=== PATIENT | female | born 1960 | race Caucasian/White ===

== ENCOUNTER 2019-12-30 08:08 | Inpatient (IN) | payer OTHER ==
--- NOTE | 2019-12-30 09:17 | BHS.RME ---
Substance Use & Tx History - Substance Use History Alcohol Substance amount: 1 kana oneil Frequency of use: Daily Substance route: Oral Date of Last Use: 12/30/19 Physical/Psych/Mental Status - Behavior Eye Contact: Normal - Cooperativeness Cooperativeness: Cooperative - Thinking Thought Processes: Tight, Logical, Goal Directed Thought content: Future oriented - Physical Health Problems Is patient presently having any pain?: No Does patient presently have any injuries (include location): No Does patient currently have a fever: No Is patient : No CIWA Nausea/Vomitin-Mild Nausea/No Vomiting Muscle Tremors: 4-Moderate,w/Arms Extend Anxiety: 3 Agitation: 3 Paroxysmal Sweats: 1-Minimal Palms Moist Orientation: 0-Oriented Tacttile Disturbances: 1-Very Mild Itch/Numbness Auditory Disturbances: 0-None Visual Disturbances: 0-None Headache: 1-Very Mild CIWA-Ar Total Score: 14
--- NOTE | 2019-12-30 09:23 | HP ---
CIWA Score Nausea/Vomitin-Mild Nausea/No Vomiting Muscle Tremors: 4-Moderate,w/Arms Extend Anxiety: 3 Agitation: 3 Paroxysmal Sweats: 1-Minimal Palms Moist Orientation: 0-Oriented Tacttile Disturbances: 1-Very Mild Itch/Numbness Auditory Disturbances: 0-None Visual Disturbances: 0-None Headache: 1-Very Mild CIWA-Ar Total Score: 14 - Admission Criteria OASAS Guidelines: Admission for Medically Managed Detox: Requires at least one of the followin. CIWA greater than 12 2. Seizures within the past 24 hours 3. Delirium tremens within the past 24 hours 4. Hallucinations within the past 24 hours 5. Acute intervention needed for co occurring medical disorder 6. Acute intervention needed for co occurring psychiatric disorder 7. Severe withdrawal that cannot be handled at a lower level of care (continued vomiting, continued diarrhea, abnormal vital signs) requiring intravenous medication and/or fluids 8. Admitting History and Physical - Admission Chief Complaint: "I want to have my life back together and had 10 years clean but just relapsed 4 months ago and have been binging." History of Present Illness: 59 year old female with history alcohol dependence who was abstinent for 10 years but relapsed 4 months ago after having difficulties with marriage and moving out. She went into a depression after that and was started on new medications for it. Now she is seeking detox. She denies SI, SA. She does not want to hurt the people she loves the most. Alcohol: 1 gallon moscado daily for past 4 months with multiple blackouts, last one was 3 days ago. Needs an eye paper spooler every day or she has temblors. Breathalyzer 0.027 today. PMH: Gastritis, HTN, HLD, Borderline DM Psych: MDD, Insomnia, Mood Disorder, NOS She is domiciled in her own apartment. She has support systems in sponsor, best friend, quaker, meetings. But all these she stopped going to when she fell into the depression which led her to binge drink. History Source: Patient Limitations to Obtaining History: No Limitations - Past Medical History Cardiovascular: Yes: HTN, Other (Hyperlipidemia) Gastrointestinal: Yes: Gastritis Endocrine: Yes: Diabetes Mellitus Admission ROS [facility] Exam Limitations: No Limitations - Ebola screening Have you traveled outside of the country in the last 21 days: No Have you had contact with anyone from an Ebola affected area: No Have you been sick,other than usual withdrawal symptoms: No Do you have a fever: No - Review of Systems Constitutional: Chills, Unintentional Wgt. Loss EENT: reports: No Symptoms Reported Respiratory: reports: No Symptoms reported Cardiac: reports: No Symptoms Reported GI: reports: Indigestion : reports: No Symptoms Reported Musculoskeletal: reports: No Symptoms Reported Integumentary: reports: No Symptoms Reported Neuro: reports: No Symptoms reported Endocrine: reports: No Symptoms Reported Hematology: reports: No Symptoms Reported Psychiatric: reports: Judgement Intact, Orientated x3, Anxious, Depressed Other Systems: Reviewed and Negative Patient History - Patient Medical History Hx Anemia: No Hx Asthma: No Hx Chronic Obstructive Pulmonary Disease (COPD): No Hx Cancer: No Hx Cardiac Disorders: No Hx Congestive Heart Failure: No Hx Hypertension: Yes Hx Hypercholesterolemia: Yes Hx Pacemaker: No HX Cerebrovascular Accident: No Hx Seizures: No Hx Dementia: No Hx Diabetes: Yes Hx Gastrointestinal Disorders: No Hx Liver Disease: No Hx Genitourinary Disorders: No Hx Sexually Transmitted Disorders: No Hx Renal Disease (ESRD): No Hx Thyroid Disease: No Hx Human Immunodeficiency Virus (HIV): No (tested 2018) Hx Hepatitis C: No (tested 2019) Hx Depression: Yes Hx Suicide Attempt: No Hx Bipolar Disorder: No Hx Schizophrenia: No - Patient Surgical History Past Surgical History: Yes Hx Neurologic Surgery: No Hx Cataract Extraction: No Hx Cardiac Surgery: No Hx Lung Surgery: No Hx Breast Surgery: Yes (breat reduction and liposuction) Hx Breast Biopsy: No Hx Abdominal Surgery: No Hx Appendectomy: No Hx Cholecystectomy: No Hx Genitourinary Surgery: No Hx Section: No Hx Orthopedic Surgery: Yes (tibial fractures in past) Hx Hysterectomy: No Anesthesia Reaction: No - PPD History Previous Implant?: No Documented Results: Negative w/proof Implanted On Prior R Admission?: No Date: 05/25/18 Results: negative PPD to be Administered?: Yes - Smoking Cessation Smoking history: Former smoker Have you smoked in the past 12 months: Yes Aproximately how many cigarettes per day: 10 Hx Chewing Tobacco Use: No Initiated information on smoking cessation: Yes 'Breaking Loose' booklet given: 12/30/19 - Substances abused Alcohol Substance route: Oral Frequency: Daily Amount used: 1 gallon moscado a day plus beers Age of first use: 11 Date of last use: 12/30/19 Cleared for Admission S - Detox or Rehab [facility] Level of Care: Medically Managed Detox Regimen/Protocol: Librium Claeared for Rehab Admission: No Screened but not Admitted - Documentation of Visit Screened but not Admitted: No Breathalyzer - Breathalyzer Breathalyzer: 0.027 (drank this morning) Inpatient Rehab Admission - Rehab Decision to Admit Inpatient rehab admission?: No
[2019-12-30] MEDS ORDERED: MAGNESIUM CITRATE 300 ML BOTTLE PO PRN (09:31)
[2019-12-30] MEDS ORDERED: MAGNESIUM HYDROX 2400MG/30ML ORAL SUSPENSION 30 ML CUP PO PRN (09:31)
[2019-12-30] MEDS ORDERED: BISMUTH SUBSALICYLATE 262 MG/15 ML BTL PO PRN (09:31)
[2019-12-30] MEDS ORDERED: chlordiazePOXIDE HCL 25 MG CAPSULE PO PRN (09:31)
[2019-12-30] MEDS ORDERED: ACETAMINOPHEN 325 MG TABLET (FP) PO PRN ×2 (09:31)
[2019-12-30] MEDS ORDERED: METHOCARBAMOL 500 MG TABLET PO PRN (09:31)
[2019-12-30] MEDS ORDERED: MELATONIN 5 MG TABLETS PO PRN (09:31)
[2019-12-30] MEDS ORDERED: MENTHOL/PHENOL 1 EACH UD MM PRN (09:31)
[2019-12-30] MEDS ORDERED: IBUPROFEN 400 MG TABLET (FP) PO PRN (09:31)
[2019-12-30] MEDS ORDERED: MAG HYDROX/AL HYDROX/SIMETH 30 ML UNIT-DOSE CUP PO PRN (09:31)
[2019-12-30] MEDS ORDERED: hydrOXYzine PAMOATE 25 MG CAPSULE (FP) PO PRN (09:31)
[2019-12-30 09:46] VITALS: BMI 28.3
[2019-12-30] MEDS: chlordiazePOXIDE HCL 25 MG CAPSULE PO SCH ×3 (11:35→22:14)
[2019-12-30] MEDS: NICOTINE 14 MG/24 HOURS TOPICAL PATCH TD SCH (11:38)
[2019-12-30] MEDS: PRENATAL VITAMINS W/ FOLIC ACID TABLET (FP) PO SCH (11:43)
[2019-12-30 14:56] LABS: HEMATOCRIT 37.7 % (32.4-45.2); HEMOGLOBIN 12.8 GM/dL (10.7-15.3); MCH 29.7 pg (25.7-33.7); MEAN CELL VOLUME 87.3 fl (80-96); MEAN PLT VOLUME 7.5 fl (7.5-11.1); PLATELET COUNT 253 K/MM3 (134-434); RBC 4.32 M/mm3 (3.60-5.2); RDW 13.7 % (11.6-15.6); WHITE BLOOD COUNT 8.5 K/mm3 (4.0-10.0)
[2019-12-30 15:24] LABS: ALBUMIN 3.5 g/dl (3.4-5.0); BILIRUBIN,TOTAL 0.4 mg/dL (0.2-1); CALCIUM 9.3 mg/dL (8.5-10.1); CREATININE 0.8 mg/dL (0.55-1.3); TOT PROT 6.9 g/dl (6.4-8.2)
[2019-12-30 15:27] LABS: POTASSIUM 2.9 mmol/L (3.5-5.1)
[2019-12-30] MEDS ORDERED: POTASSIUM CHLORIDE TABS 20 MEQ TABLET.ER (FP) PO ONE (15:44)
--- NOTE | 2019-12-30 15:45 | PN ---
BHS Progress Note Note: Low potassium: K 2.9. Potassium supplementation started. repeat K level
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
[2019-12-30] MEDS ORDERED: traZODone HCL 50 MG TABLET (FP) PO SCH (22:00)
[2019-12-30] MEDS: POTASSIUM CHLORIDE TABS 20 MEQ TABLET.ER (FP) PO SCH (22:14)
[2019-12-30] MEDS: traZODone HCL 100 MG TABLET (FP) PO SCH (22:14)
[2019-12-30] MEDS: THIAMINE HCL 100 MG TABLET (FP) PO SCH (22:14)
[2019-12-31] MEDS: chlordiazePOXIDE HCL 25 MG CAPSULE PO SCH ×4 (06:22→22:18)
[2019-12-31 09:38] LABS: BLOOD UREA NITROGEN 9.3 mg/dL (7-18); CALCIUM 9.3 mg/dL (8.5-10.1); CREATININE 0.7 mg/dL (0.55-1.3); POTASSIUM 3.9 mmol/L (3.5-5.1)
[2019-12-31] MEDS: POTASSIUM CHLORIDE TABS 20 MEQ TABLET.ER (FP) PO SCH ×2 (10:51→22:18)
[2019-12-31] MEDS: FLUoxetine HCL 20 MG CAPSULE PO SCH (10:51)
[2019-12-31] MEDS: NICOTINE 14 MG/24 HOURS TOPICAL PATCH TD SCH (10:51)
[2019-12-31] MEDS: PRENATAL VITAMINS W/ FOLIC ACID TABLET (FP) PO SCH (10:51)
--- NOTE | 2019-12-31 11:00 | PN ---
S CIWA - CIWA Score Nausea/Vomitin-Mild Nausea/No Vomiting Muscle Tremors: 2 Anxiety: 3 Agitation: 2 Paroxysmal Sweats: 1-Minimal Palms Moist Orientation: 0-Oriented Tacttile Disturbances: 0-None Auditory Disturbances: 0-None Visual Disturbances: 0-None Headache: 1-Very Mild CIWA-Ar Total Score: 10 BHS Progress Note (SOAP) Subjective: pt here for alcohol use disorder- started on detox. O: Vital Signs - 24 hr 12/30/19 12/30/19 12/30/19 14:46 17:26 20:43 Temperature 98.1 F 98.4 F 97.9 F Pulse Rate 76 75 77 Respiratory 18 18 18 Rate Blood Pressure 112/73 110/66 122/75 12/31/19 12/31/19 12/31/19 00:46 04:25 06:25 Temperature 97.5 F L Pulse Rate 65 Respiratory 16 16 18 Rate Blood Pressure 105/74 12/31/19 10:09 Temperature 98.1 F Pulse Rate 76 Respiratory 18 Rate Blood Pressure 102/53 L Laboratory Tests 12/30/19 12/30/19 12/30/19 10:35 10:35 10:35 WBC 8.5 RBC 4.32 Hgb 12.8 Hct 37.7 MCV 87.3 MCH 29.7 MCHC 34.0 RDW 13.7 Plt Count 253 MPV 7.5 Sodium 139 Potassium 2.9 L* Chloride 103 Carbon Dioxide 29 Anion Gap 7 L BUN 8.0 Creatinine 0.8 Est GFR (CKD-EPI)AfAm 94.85 Est GFR (CKD-EPI)NonAf 81.84 POC Glucometer Random Glucose 91 Calcium 9.3 Total Bilirubin 0.4 AST 28 ALT 34 Alkaline Phosphatase 60 Total Protein 6.9 Albumin 3.5 RPR Titer Nonreactive 12/31/19 12/31/19 06:23 07:00 WBC RBC Hgb Hct MCV MCH MCHC RDW Plt Count MPV Sodium 145 Potassium 3.9 Chloride 110 H Carbon Dioxide 29 Anion Gap 6 L BUN 9.3 Creatinine 0.7 Est GFR (CKD-EPI)AfAm 111.47 Est GFR (CKD-EPI)NonAf 96.18 POC Glucometer 78 Random Glucose 101 Calcium 9.3 Total Bilirubin AST ALT Alkaline Phosphatase Total Protein Albumin RPR Titer a/p: AUD- continue detox protocol Hypokalemia- on K replacement HTN on HCTZ- started today
[2019-12-31] MEDS ORDERED: chlordiazePOXIDE HCL 25 MG CAPSULE PO PRN (11:05)
[2019-12-31] MEDS: HYDROCHLOROTHIAZIDE 25 MG TABLET (FP) PO SCH (14:06)
[2019-12-31] MEDS: traZODone HCL 100 MG TABLET (FP) PO SCH (22:18)
[2019-12-31] MEDS: THIAMINE HCL 100 MG TABLET (FP) PO SCH (22:18)
[2020-01-01] MEDS ORDERED: chlordiazePOXIDE HCL 25 MG CAPSULE PO SCH ×2 (05:00)
[2020-01-01] MEDS ORDERED: chlordiazePOXIDE HCL 10 MG CAPSULE PO PRN (05:36)
[2020-01-01] MEDS ORDERED: chlordiazePOXIDE HCL 10 MG CAPSULE PO SCH (05:36)
[2020-01-01] MEDS: chlordiazePOXIDE HCL 10 MG CAPSULE PO SCH ×4 (06:40→22:19)
[2020-01-01] MEDS: HYDROCHLOROTHIAZIDE 25 MG TABLET (FP) PO SCH (10:41)
[2020-01-01] MEDS: POTASSIUM CHLORIDE TABS 20 MEQ TABLET.ER (FP) PO SCH ×2 (10:41→22:20)
[2020-01-01] MEDS: FLUoxetine HCL 20 MG CAPSULE PO SCH (10:41)
[2020-01-01] MEDS: PRENATAL VITAMINS W/ FOLIC ACID TABLET (FP) PO SCH (10:41)
[2020-01-01] MEDS: NICOTINE 14 MG/24 HOURS TOPICAL PATCH TD SCH (10:42)
--- NOTE | 2020-01-01 13:59 | PN ---
S CIWA - CIWA Score Nausea/Vomitin-No Nausea/No Vomiting Muscle Tremors: 2 Anxiety: 3 Agitation: 1-Slight > Activity Paroxysmal Sweats: 2 Orientation: 0-Oriented Tacttile Disturbances: 0-None Auditory Disturbances: 0-None Visual Disturbances: 0-None Headache: 2-Mild CIWA-Ar Total Score: 10 BHS Progress Note (SOAP) Subjective: Alcohol withdrawal sx. Patient c/o anxiety, restlessness, sweats and shakes. Objective: 01/01/20 13:58 Laboratory Tests 12/30/19 12/30/19 12/30/19 10:35 10:35 10:35 WBC 8.5 RBC 4.32 Hgb 12.8 Hct 37.7 MCV 87.3 MCH 29.7 MCHC 34.0 RDW 13.7 Plt Count 253 MPV 7.5 Sodium 139 Potassium 2.9 L* Chloride 103 Carbon Dioxide 29 Anion Gap 7 L BUN 8.0 Creatinine 0.8 Est GFR (CKD-EPI)AfAm 94.85 Est GFR (CKD-EPI)NonAf 81.84 POC Glucometer Random Glucose 91 Calcium 9.3 Total Bilirubin 0.4 AST 28 ALT 34 Alkaline Phosphatase 60 Total Protein 6.9 Albumin 3.5 RPR Titer Nonreactive 12/31/19 12/31/19 06:23 07:00 WBC RBC Hgb Hct MCV MCH MCHC RDW Plt Count MPV Sodium 145 Potassium 3.9 Chloride 110 H Carbon Dioxide 29 Anion Gap 6 L BUN 9.3 Creatinine 0.7 Est GFR (CKD-EPI)AfAm 111.47 Est GFR (CKD-EPI)NonAf 96.18 POC Glucometer 78 Random Glucose 101 Calcium 9.3 Total Bilirubin AST ALT Alkaline Phosphatase Total Protein Albumin RPR Titer Vital Signs Temperature 97.9 F 01/01/20 11:49 Pulse Rate 74 01/01/20 11:49 Respiratory Rate 16 01/01/20 11:49 Blood Pressure 108/68 01/01/20 11:49 O2 Sat by Pulse Oximetry (%) PE alert and oriented x 3 skin warm, mild moisture to back +perrla, eoms intact bl gi nt, nd ext full rom, amb ad olivia mild tremors mildly anxious Assessment: 01/01/20 13:59 etoh withdrawal sx Plan: continue detox monitor clinically
[2020-01-01] MEDS: traZODone HCL 100 MG TABLET (FP) PO SCH (22:19)
[2020-01-01] MEDS: THIAMINE HCL 100 MG TABLET (FP) PO SCH (22:20)
[2020-01-02] MEDS ORDERED: chlordiazePOXIDE HCL 10 MG CAPSULE PO PRN
[2020-01-02] MEDS: chlordiazePOXIDE HCL 10 MG CAPSULE PO SCH ×4 (05:39→22:13)
[2020-01-02] MEDS: FLUoxetine HCL 20 MG CAPSULE PO SCH (10:43)
[2020-01-02] MEDS: PRENATAL VITAMINS W/ FOLIC ACID TABLET (FP) PO SCH (10:43)
[2020-01-02] MEDS: HYDROCHLOROTHIAZIDE 25 MG TABLET (FP) PO SCH (10:43)
[2020-01-02] MEDS: POTASSIUM CHLORIDE TABS 20 MEQ TABLET.ER (FP) PO SCH ×2 (10:44→22:13)
[2020-01-02] MEDS: NICOTINE 14 MG/24 HOURS TOPICAL PATCH TD SCH (10:44)
--- NOTE | 2020-01-02 14:37 | PN ---
S CIWA - CIWA Score Nausea/Vomitin-Mild Nausea/No Vomiting Muscle Tremors: 1-None Visible, but [place] Anxiety: 1-Mildly Anxious Agitation: 1-Slight > Activity Paroxysmal Sweats: No Perspiration Orientation: 0-Oriented Tacttile Disturbances: 1-Very Mild Itch/Numbness Auditory Disturbances: 0-None Visual Disturbances: 0-None Headache: 1-Very Mild CIWA-Ar Total Score: 6 BHS Progress Note (SOAP) Subjective: alert,irritable,anxious,interrupted sleep Objective: 01/02/20 14:36 Vital Signs Temperature 97.3 F L 01/02/20 09:02 Pulse Rate 77 01/02/20 09:02 Respiratory Rate 18 01/02/20 09:02 Blood Pressure 104/72 01/02/20 09:02 O2 Sat by Pulse Oximetry (%) 01/02/20 14:36 Laboratory Last Values WBC 8.5 K/mm3 (4.0-10.0) 12/30/19 10:35 RBC 4.32 M/mm3 (3.60-5.2) 12/30/19 10:35 Hgb 12.8 GM/dL (10.7-15.3) 12/30/19 10:35 Hct 37.7 % (32.4-45.2) 12/30/19 10:35 MCV 87.3 fl (80-96) 12/30/19 10:35 MCH 29.7 pg (25.7-33.7) 12/30/19 10:35 MCHC 34.0 g/dl (32.0-36.0) 12/30/19 10:35 RDW 13.7 % (11.6-15.6) 12/30/19 10:35 Plt Count 253 K/MM3 (134-434) 12/30/19 10:35 MPV 7.5 fl (7.5-11.1) 12/30/19 10:35 Sodium 145 mmol/L (136-145) 12/31/19 07:00 Potassium 3.9 mmol/L (3.5-5.1) 12/31/19 07:00 Chloride 110 mmol/L (98-107) H 12/31/19 07:00 Carbon Dioxide 29 mmol/L (21-32) 12/31/19 07:00 Anion Gap 6 MMOL/L (8-16) L 12/31/19 07:00 BUN 9.3 mg/dL (7-18) 12/31/19 07:00 Creatinine 0.7 mg/dL (0.55-1.3) 12/31/19 07:00 Est GFR (CKD-EPI)AfAm 111.47 12/31/19 07:00 Est GFR (CKD-EPI)NonAf 96.18 12/31/19 07:00 POC Glucometer 89 UNITS (80-120) 01/02/20 05:39 Random Glucose 101 mg/dL (74-106) 12/31/19 07:00 Calcium 9.3 mg/dL (8.5-10.1) 12/31/19 07:00 Total Bilirubin 0.4 mg/dL (0.2-1) 12/30/19 10:35 AST 28 U/L (15-37) 12/30/19 10:35 ALT 34 U/L (13-61) 12/30/19 10:35 Alkaline Phosphatase 60 U/L (45-117) 12/30/19 10:35 Total Protein 6.9 g/dl (6.4-8.2) 12/30/19 10:35 Albumin 3.5 g/dl (3.4-5.0) 12/30/19 10:35 RPR Titer Nonreactive (NONREACTIVE) 12/30/19 10:35 Assessment: 01/02/20 14:37 withdrawal symptom Plan: continue detox librium regimen
[2020-01-02] MEDS: traZODone HCL 100 MG TABLET (FP) PO SCH (22:13)
[2020-01-02] MEDS: THIAMINE HCL 100 MG TABLET (FP) PO SCH (22:13)
[2020-01-03] MEDS: chlordiazePOXIDE HCL 10 MG CAPSULE PO SCH ×2 (05:35→19:31)
--- NOTE | 2020-01-03 09:39 | PN ---
BHS CIWA - CIWA Score Nausea/Vomitin-Mild Nausea/No Vomiting Muscle Tremors: 2 Anxiety: 1-Mildly Anxious Agitation: 1-Slight > Activity Paroxysmal Sweats: No Perspiration Orientation: 0-Oriented Tacttile Disturbances: 0-None Auditory Disturbances: 0-None Visual Disturbances: 0-None Headache: 0-None Present CIWA-Ar Total Score: 5 BHS Progress Note (SOAP) Subjective: pt states she is feeling OK. anticipate d/c tomorrow. Would like to go to rehab - O: Vital Signs - 24 hr 01/02/20 01/02/20 01/03/20 14:50 17:10 00:08 Temperature 97.1 F L 97.3 F L Pulse Rate 75 74 Respiratory 18 18 18 Rate Blood Pressure 107/61 100/68 01/03/20 01/03/20 01/03/20 03:36 05:30 06:37 Temperature 97.7 F Pulse Rate 62 62 Respiratory 18 18 18 Rate Blood Pressure 108/74 Laboratory Tests 12/30/19 12/30/19 12/30/19 10:35 10:35 10:35 WBC 8.5 RBC 4.32 Hgb 12.8 Hct 37.7 MCV 87.3 MCH 29.7 MCHC 34.0 RDW 13.7 Plt Count 253 MPV 7.5 Sodium 139 Potassium 2.9 L* Chloride 103 Carbon Dioxide 29 Anion Gap 7 L BUN 8.0 Creatinine 0.8 Est GFR (CKD-EPI)AfAm 94.85 Est GFR (CKD-EPI)NonAf 81.84 POC Glucometer Random Glucose 91 Calcium 9.3 Total Bilirubin 0.4 AST 28 ALT 34 Alkaline Phosphatase 60 Total Protein 6.9 Albumin 3.5 RPR Titer Nonreactive 12/31/19 12/31/19 01/02/20 06:23 07:00 05:39 WBC RBC Hgb Hct MCV MCH MCHC RDW Plt Count MPV Sodium 145 Potassium 3.9 Chloride 110 H Carbon Dioxide 29 Anion Gap 6 L BUN 9.3 Creatinine 0.7 Est GFR (CKD-EPI)AfAm 111.47 Est GFR (CKD-EPI)NonAf 96.18 POC Glucometer 78 89 Random Glucose 101 Calcium 9.3 Total Bilirubin AST ALT Alkaline Phosphatase Total Protein Albumin RPR Titer a/p: AUD- continue detox protocol to talk to counselor re dispo to rehab
[2020-01-03] MEDS: POTASSIUM CHLORIDE TABS 20 MEQ TABLET.ER (FP) PO SCH ×2 (10:02→22:21)
[2020-01-03] MEDS: PRENATAL VITAMINS W/ FOLIC ACID TABLET (FP) PO SCH (10:02)
[2020-01-03] MEDS: FLUoxetine HCL 20 MG CAPSULE PO SCH (10:02)
[2020-01-03] MEDS: NICOTINE 14 MG/24 HOURS TOPICAL PATCH TD SCH (10:02)
[2020-01-03] MEDS: HYDROCHLOROTHIAZIDE 25 MG TABLET (FP) PO SCH (10:02)
[2020-01-03] MEDS: THIAMINE HCL 100 MG TABLET (FP) PO SCH (22:21)
[2020-01-03] MEDS: traZODone HCL 100 MG TABLET (FP) PO SCH (22:21)
[2020-01-04] MEDS ORDERED: chlordiazePOXIDE HCL 10 MG CAPSULE PO ONE (05:00)
--- NOTE | 2020-01-04 10:03 | PN ---
[facility] CIWA - CIWA Score Nausea/Vomitin-No Nausea/No Vomiting Muscle Tremors: None Anxiety: 0-No Anxiety, at Ease Agitation: 1-Slight > Activity Paroxysmal Sweats: No Perspiration Orientation: 0-Oriented Tacttile Disturbances: 0-None Auditory Disturbances: 0-None Visual Disturbances: 0-None Headache: 0-None Present CIWA-Ar Total Score: 1 BHS Progress Note (SOAP) Subjective: alert,no complaint Objective: 01/04/20 10:02 Vital Signs Temperature 98.2 F 01/03/20 20:32 Pulse Rate 86 01/03/20 20:32 Respiratory Rate 18 01/04/20 03:51 Blood Pressure 133/55 L 01/03/20 20:32 O2 Sat by Pulse Oximetry (%) Assessment: 01/04/20 10:02 detox completed,no withdrawal symptom Plan: discharge today,follow up with [facility]
--- NOTE | 2020-01-04 10:06 | DS ---
[facility] Detox Discharge Summary Admission Date: 12/30/19 Discharge Date: 01/04/20 - History Present History: Alcohol Dependence Additional Comments: alert,oriented x3 ambulation on the unit no abdominal pain no swelling of face or feet stable for discharge discharge time 30 mins to [facility] as schedule - Physical Exam Results Vital Signs: Vital Signs Temperature 98.2 F 01/03/20 20:32 Pulse Rate 86 01/03/20 20:32 Respiratory Rate 18 01/04/20 03:51 Blood Pressure 133/55 L 01/03/20 20:32 O2 Sat by Pulse Oximetry (%) Pertinent Admission Physical Exam Findings: withdrawal sign and symptom Laboratory Last Values WBC 8.5 K/mm3 (4.0-10.0) 12/30/19 10:35 RBC 4.32 M/mm3 (3.60-5.2) 12/30/19 10:35 Hgb 12.8 GM/dL (10.7-15.3) 12/30/19 10:35 Hct 37.7 % (32.4-45.2) 12/30/19 10:35 MCV 87.3 fl (80-96) 12/30/19 10:35 MCH 29.7 pg (25.7-33.7) 12/30/19 10:35 MCHC 34.0 g/dl (32.0-36.0) 12/30/19 10:35 RDW 13.7 % (11.6-15.6) 12/30/19 10:35 Plt Count 253 K/MM3 (134-434) 12/30/19 10:35 MPV 7.5 fl (7.5-11.1) 12/30/19 10:35 Sodium 145 mmol/L (136-145) 12/31/19 07:00 Potassium 3.9 mmol/L (3.5-5.1) 12/31/19 07:00 Chloride 110 mmol/L (98-107) H 12/31/19 07:00 Carbon Dioxide 29 mmol/L (21-32) 12/31/19 07:00 Anion Gap 6 MMOL/L (8-16) L 12/31/19 07:00 BUN 9.3 mg/dL (7-18) 12/31/19 07:00 Creatinine 0.7 mg/dL (0.55-1.3) 12/31/19 07:00 Est GFR (CKD-EPI)AfAm 111.47 12/31/19 07:00 Est GFR (CKD-EPI)NonAf 96.18 12/31/19 07:00 POC Glucometer 89 UNITS (80-120) 01/02/20 05:39 Random Glucose 101 mg/dL (74-106) 12/31/19 07:00 Calcium 9.3 mg/dL (8.5-10.1) 12/31/19 07:00 Total Bilirubin 0.4 mg/dL (0.2-1) 12/30/19 10:35 AST 28 U/L (15-37) 12/30/19 10:35 ALT 34 U/L (13-61) 12/30/19 10:35 Alkaline Phosphatase 60 U/L (45-117) 12/30/19 10:35 Total Protein 6.9 g/dl (6.4-8.2) 12/30/19 10:35 Albumin 3.5 g/dl (3.4-5.0) 12/30/19 10:35 RPR Titer Nonreactive (NONREACTIVE) 12/30/19 10:35 Vital Signs Temperature 98.2 F 01/03/20 20:32 Pulse Rate 86 01/03/20 20:32 Respiratory Rate 18 01/04/20 03:51 Blood Pressure 133/55 L 01/03/20 20:32 O2 Sat by Pulse Oximetry (%) - Treatment Hospital Course: Detox Protocol Followed, Detoxed Safely, Responded well, Discharged Condition Good, Rehab Referral Accepted Patient has Accepted a Rehab Referral to: [facility] - Medication Discharge Medications: Ambulatory Orders Atorvastatin Ca [Lipitor] 80 mg PO HS 12/30/19 Clonazepam 0.5 mg PO DAILY PRN 12/30/19 Cyproheptadine HCl 4 mg PO BID 12/30/19 Fluoxetine HCl [Prozac] 40 mg PO DAILY 12/30/19 Hydrochlorothiazide [Hctz -] 25 mg PO DAILY 12/30/19 Trazodone HCl 300 mg PO HS 12/30/19 - Diagnosis (1) Alcohol use disorder Current Visit: Yes Status: Acute (2) Alcohol-induced mood disorder Current Visit: Yes Status: Acute (3) MDD (major depressive disorder) Current Visit: Yes Status: Chronic - AMA Did Patient Leave Against Medical Advice: No
[2020-01-04 11:17] VITALS: BP 103/61; PULSE 85; TEMP 97.3
== END 2020-01-04 10:04 | disposition other institution (70) | DRG 775 ==
LOC: YASAS 08:08 → Y6N 10:27
PROVIDERS: ADMIT Allergy & Immunology; ATTEND Allergy & Immunology
PROC: HZ2ZZZZ Detoxification Services for Substance Abuse Treatment (ICD-10-PCS; principal; 2019-12-30)
DX: F10.230 Alcohol dependence with withdrawal, uncomplicated (principal); F10.24 Alcohol dependence with alcohol-induced mood disorder; F33.9 Major depressive disorder, recurrent, unspecified; G47.00 Insomnia, unspecified; E87.6 Hypokalemia; I10 Essential (primary) hypertension; E78.5 Hyperlipidemia, unspecified; E11.9 Type 2 diabetes mellitus without complications; Z87.19 Personal history of other diseases of the digestive system; Z88.8 Allergy status to other drugs, medicaments and biological substances
CPT/HCPCS: 36415; 80048; 80053; 82962; 85027; 86593

== ENCOUNTER 2020-01-04 10:08 | Inpatient (IN) | payer OTHER ==
[2020-01-04] MEDS ORDERED: MAGNESIUM CITRATE 300 ML BOTTLE PO PRN (12:42)
[2020-01-04] MEDS ORDERED: guaiFENesin 200 MG/10 ML 10 ML UNIT-DOSE CUPS PO PRN (12:42)
[2020-01-04] MEDS ORDERED: MENTHOL/PHENOL 1 EACH UD MM PRN (12:42)
[2020-01-04] MEDS ORDERED: NICOTINE POLACRILEX 2 MG GUM BUC PRN (12:42)
[2020-01-04] MEDS ORDERED: P-EPHED 60MG/TRIPROLIDI 2.5MG TABLET PO PRN (12:42)
[2020-01-04] MEDS ORDERED: MAGNESIUM HYDROX 2400MG/30ML ORAL SUSPENSION 30 ML CUP PO PRN (12:42)
[2020-01-04] MEDS ORDERED: MAG HYDROX/AL HYDROX/SIMETH 30 ML UNIT-DOSE CUP PO PRN (12:42)
[2020-01-04] MEDS ORDERED: ACETAMINOPHEN 325 MG TABLET (FP) PO PRN (12:42)
[2020-01-04] MEDS ORDERED: LOPERAMIDE HCL 2 MG CAPSULE PO PRN (12:42)
[2020-01-04] MEDS ORDERED: IBUPROFEN 400 MG TABLET (FP) PO PRN (12:42)
--- NOTE | 2020-01-04 12:49 | HP ---
[facility] [address] Rehab Assess/Revision - Admission History Admitted to Rehab from: [facility] Date of Admission to Rehab: 01/04/2020 - Vital signs Vital Signs: Vital Signs Period Temp Pulse Resp BP Sys/Garcia Pulse Ox Last 24 Hr 98.1 F 83 18 93/63 - Findings Detox History & Physical reviewed: Yes Concur with findings: Yes Inpatient Rehab Admission - Rehab Decision to Admit Inpatient rehab admission?: Yes - Initial Determination Are CD services needed?: Yes Free of communicable disease: Yes Not in need of hospitalization: Yes - Rehab Admission Criteria Previous failed treatment: Yes Poor recovery environment: Yes Comorbidities: Yes Lacks judgement: No Patient is meeting Inpatient Rehab admission criteria:: Yes
--- NOTE | 2020-01-04 12:52 | PN ---
[facility] Progress Note Note: patient admitted to [facility]. Orders, labs, admission & detox notes, problem list reviewed. Vital Signs Period Temp Pulse Resp BP Sys/Garcia Pulse Ox Last 24 Hr 98.1 F 83 18 93/63 General: No apparent distress HEENTM: normocephalic NEck: supple MSK: full weight bearing, steady gait. NEURO: CN 2-12 intact A/P ETOH dependence. Continue Substance use rehabilitation Hydration Maintain safety' Monitor clinically
[2020-01-04] MEDS: THIAMINE HCL 100 MG TABLET (FP) PO SCH (21:24)
[2020-01-04] MEDS ORDERED: ATORVASTATIN CA 40 MG TABLET (FP) ONE (21:25)
[2020-01-04] MEDS: traZODone HCL 100 MG TABLET (FP) PO SCH (21:26)
[2020-01-04] MEDS: ATORVASTATIN CA 80 MG TABLET (FP) PO SCH (21:26)
[2020-01-05] MEDS: PRENATAL VITAMINS W/ FOLIC ACID TABLET (FP) PO SCH (09:22)
[2020-01-05] MEDS: FLUoxetine HCL 20 MG CAPSULE PO SCH (09:22)
[2020-01-05] MEDS: NICOTINE 14 MG/24 HOURS TOPICAL PATCH TD SCH (09:22)
[2020-01-05] MEDS: HYDROCHLOROTHIAZIDE 25 MG TABLET (FP) PO SCH (09:22)
[2020-01-05] MEDS ORDERED: ATORVASTATIN CA 40 MG TABLET (FP) ONE (19:19)
[2020-01-05] MEDS: THIAMINE HCL 100 MG TABLET (FP) PO SCH (21:55)
[2020-01-05] MEDS: traZODone HCL 100 MG TABLET (FP) PO SCH (21:56)
[2020-01-05] MEDS: ATORVASTATIN CA 80 MG TABLET (FP) PO SCH (21:56)
[2020-01-06] MEDS: PRENATAL VITAMINS W/ FOLIC ACID TABLET (FP) PO SCH (10:31)
[2020-01-06] MEDS: NICOTINE 14 MG/24 HOURS TOPICAL PATCH TD SCH (10:32)
[2020-01-06] MEDS: FLUoxetine HCL 20 MG CAPSULE PO SCH (10:32)
[2020-01-06] MEDS: HYDROCHLOROTHIAZIDE 25 MG TABLET (FP) PO SCH (11:13)
[2020-01-06] MEDS ORDERED: HYDROCHLOROTHIAZIDE 25 MG TABLET (FP) PO SCH (11:14)
--- NOTE | 2020-01-06 11:17 | PN ---
[facility] Progress Note Note: Patient on HCTZ, but BP is frequently low; asymptomatic with low BP Vital Signs (72 hours) 01/04/20 01/05/20 01/05/20 10:42 00:33 03:31 Temperature 98.1 F Pulse Rate 83 Respiratory 18 14 18 Rate Blood Pressure 93/63 01/05/20 01/05/20 01/06/20 06:42 09:24 00:39 Temperature 97.6 F Pulse Rate 76 84 Respiratory 18 17 Rate Blood Pressure 88/64 L 91/61 01/06/20 01/06/20 01/06/20 03:32 06:43 09:17 Temperature 97.5 F L Pulse Rate 69 111 H Respiratory 18 18 Rate Blood Pressure 88/65 L 113/73 P/E: General-no apparent distress HEENTM-PERRLA Lungs-clear Heart-s1 s2 Neuro: CN 2-12 intact A/P Incidence of hypotension Changee HCTZ to 12.5; hold for SBP<110, DBP,60
[2020-01-06 15:34] LABS: EPI CELLS 4.8 /HPF (0-5/HPF); HYALINE CASTS 5 /lpf (0-8); PH,URINE 5.5 (5.0-8.0); URINE APPEARANCE CLEAR; URINE BACTERIA 7.4 /hpf (NEGATIVE); URINE BILIRUBIN NEGATIVE (NEGATIVE); URINE COLOR YELLOW; URINE GLUCOSE (UA) NEGATIVE (NEGATIVE); URINE KETONE NEGATIVE (NEGATIVE); URINE LEUK ESTERASE 2+ (NEGATIVE); URINE NITRITE NEGATIVE (NEGATIVE); URINE PROTEIN NEGATIVE (NEGATIVE); URINE RBC 2 /hpf (0-4); URINE UROBILINOGEN 0.2 mg/dL (0.2-1.0); URINE WBC 6 /hpf (0-5)
[2020-01-06] MEDS ORDERED: ATORVASTATIN CA 40 MG TABLET (FP) ONE (18:18)
[2020-01-06] MEDS: THIAMINE HCL 100 MG TABLET (FP) PO SCH (21:21)
[2020-01-06] MEDS: traZODone HCL 100 MG TABLET (FP) PO SCH (21:22)
[2020-01-06] MEDS: ATORVASTATIN CA 80 MG TABLET (FP) PO SCH (21:22)
[2020-01-07] MEDS: NICOTINE 14 MG/24 HOURS TOPICAL PATCH TD SCH (10:37)
[2020-01-07] MEDS: HYDROCHLOROTHIAZIDE 12.5 MG CAPSULE (FP) PO SCH (10:37)
[2020-01-07] MEDS: PRENATAL VITAMINS W/ FOLIC ACID TABLET (FP) PO SCH (10:38)
[2020-01-07] MEDS: FLUoxetine HCL 20 MG CAPSULE PO SCH (10:38)
[2020-01-07] MEDS ORDERED: ATORVASTATIN CA 40 MG TABLET (FP) ONE (20:36)
[2020-01-07] MEDS: traZODone HCL 100 MG TABLET (FP) PO SCH (21:36)
[2020-01-07] MEDS: ATORVASTATIN CA 80 MG TABLET (FP) PO SCH (21:36)
[2020-01-07] MEDS: THIAMINE HCL 100 MG TABLET (FP) PO SCH (21:36)
[2020-01-08] MEDS: NICOTINE 14 MG/24 HOURS TOPICAL PATCH TD SCH (10:22)
[2020-01-08] MEDS: FLUoxetine HCL 20 MG CAPSULE PO SCH (10:22)
[2020-01-08] MEDS: PRENATAL VITAMINS W/ FOLIC ACID TABLET (FP) PO SCH (10:22)
[2020-01-08] MEDS: HYDROCHLOROTHIAZIDE 12.5 MG CAPSULE (FP) PO SCH (10:24)
[2020-01-08] MEDS ORDERED: ATORVASTATIN CA 40 MG TABLET (FP) ONE (20:26)
[2020-01-08] MEDS: THIAMINE HCL 100 MG TABLET (FP) PO SCH (21:14)
[2020-01-08] MEDS: traZODone HCL 100 MG TABLET (FP) PO SCH (21:14)
[2020-01-08] MEDS: ATORVASTATIN CA 80 MG TABLET (FP) PO SCH (21:15)
[2020-01-09] MEDS: NICOTINE 14 MG/24 HOURS TOPICAL PATCH TD SCH (10:21)
[2020-01-09] MEDS: FLUoxetine HCL 20 MG CAPSULE PO SCH (10:21)
[2020-01-09] MEDS: PRENATAL VITAMINS W/ FOLIC ACID TABLET (FP) PO SCH (10:21)
[2020-01-09] MEDS: HYDROCHLOROTHIAZIDE 12.5 MG CAPSULE (FP) PO SCH (10:22)
[2020-01-09] MEDS ORDERED: ATORVASTATIN CA 40 MG TABLET (FP) ONE (18:54)
[2020-01-09] MEDS: MELATONIN 5 MG TABLETS PO PRN (21:49)
[2020-01-09] MEDS: THIAMINE HCL 100 MG TABLET (FP) PO SCH (21:49)
[2020-01-09] MEDS: hydrOXYzine PAMOATE 50 MG CAPSULE (FP) PO PRN (21:49)
[2020-01-09] MEDS: ATORVASTATIN CA 80 MG TABLET (FP) PO SCH (21:49)
[2020-01-09] MEDS: traZODone HCL 100 MG TABLET (FP) PO SCH (21:49)
[2020-01-10] MEDS ORDERED: PT OWN MED DRAWER 7, Y5N ONE (09:04)
[2020-01-10] MEDS: hydrOXYzine PAMOATE 50 MG CAPSULE (FP) PO PRN ×2 (09:08→21:17)
[2020-01-10] MEDS: HYDROCHLOROTHIAZIDE 12.5 MG CAPSULE (FP) PO SCH (10:32)
[2020-01-10] MEDS: FLUoxetine HCL 20 MG CAPSULE PO SCH (10:32)
[2020-01-10] MEDS: PRENATAL VITAMINS W/ FOLIC ACID TABLET (FP) PO SCH (10:32)
[2020-01-10] MEDS: NICOTINE 14 MG/24 HOURS TOPICAL PATCH TD SCH (10:34)
--- NOTE | 2020-01-10 10:43 | PN ---
S Progress Note Note: Informed that patient's heart rate was elevated at 135. The patient was nervous about presenting in group. Nurse reports that the patient was asymptomatic. Patient denies SOB, chest pain, cardiac symptoms P/E: General: no apparent distress HEENTM: PERRLA Neck: supple, no JVD noted Lungs: clear Heart: s1 s2 audible, regular, no murmurs; rate between 62-70. Vital Signs (72 hours) 01/07/20 01/08/20 01/08/20 12:00 00:30 03:24 Temperature 97.9 F Pulse Rate 85 Respiratory 16 16 16 Rate Blood Pressure 102/64 01/08/20 01/08/20 01/09/20 06:30 10:25 00:37 Temperature 97.5 F L Pulse Rate 78 81 Respiratory 16 17 18 Rate Blood Pressure 90/56 L 101/69 01/09/20 01/09/20 01/09/20 03:30 06:39 09:14 Temperature 97.9 F Pulse Rate 76 86 Respiratory 18 18 Rate Blood Pressure 109/73 90/61 01/10/20 01/10/20 01/10/20 00:32 03:24 06:38 Temperature 97.5 F L Pulse Rate 88 Respiratory 17 16 18 Rate Blood Pressure 107/73 01/10/20 01/10/20 09:18 10:24 Temperature 97.3 F L Pulse Rate 134 H 70 Respiratory 16 Rate Blood Pressure 111/74 108/69 A/P: patient HR and BP stable after meeting.
[2020-01-10] MEDS ORDERED: ATORVASTATIN CA 40 MG TABLET (FP) ONE (20:04)
[2020-01-10] MEDS: ATORVASTATIN CA 80 MG TABLET (FP) PO SCH (21:16)
[2020-01-10] MEDS: traZODone HCL 100 MG TABLET (FP) PO SCH (21:16)
[2020-01-10] MEDS: MELATONIN 5 MG TABLETS PO PRN (21:17)
[2020-01-10] MEDS: THIAMINE HCL 100 MG TABLET (FP) PO SCH (21:17)
[2020-01-11] MEDS: HYDROCHLOROTHIAZIDE 12.5 MG CAPSULE (FP) PO SCH (10:00)
[2020-01-11] MEDS: PRENATAL VITAMINS W/ FOLIC ACID TABLET (FP) PO SCH (10:00)
[2020-01-11] MEDS: NICOTINE 14 MG/24 HOURS TOPICAL PATCH TD SCH (10:00)
[2020-01-11] MEDS: FLUoxetine HCL 20 MG CAPSULE PO SCH (10:00)
[2020-01-11] MEDS ORDERED: ATORVASTATIN CA 40 MG TABLET (FP) ONE (19:47)
[2020-01-11] MEDS: MELATONIN 5 MG TABLETS PO PRN (21:52)
[2020-01-11] MEDS: THIAMINE HCL 100 MG TABLET (FP) PO SCH (21:52)
[2020-01-11] MEDS: ATORVASTATIN CA 80 MG TABLET (FP) PO SCH (21:52)
[2020-01-11] MEDS: traZODone HCL 100 MG TABLET (FP) PO SCH (21:52)
[2020-01-11] MEDS ORDERED: PT OWN MED DRAWER 7, Y5N ONE (22:11)
[2020-01-12] MEDS: FLUoxetine HCL 20 MG CAPSULE PO SCH (10:12)
[2020-01-12] MEDS: PRENATAL VITAMINS W/ FOLIC ACID TABLET (FP) PO SCH (10:12)
[2020-01-12] MEDS: HYDROCHLOROTHIAZIDE 12.5 MG CAPSULE (FP) PO SCH (10:13)
[2020-01-12] MEDS ORDERED: ATORVASTATIN CA 40 MG TABLET (FP) ONE (19:14)
[2020-01-12] MEDS: THIAMINE HCL 100 MG TABLET (FP) PO SCH (21:36)
[2020-01-12] MEDS: ATORVASTATIN CA 80 MG TABLET (FP) PO SCH (21:37)
[2020-01-12] MEDS: traZODone HCL 100 MG TABLET (FP) PO SCH (21:37)
[2020-01-13] MEDS: PRENATAL VITAMINS W/ FOLIC ACID TABLET (FP) PO SCH (09:14)
[2020-01-13] MEDS: HYDROCHLOROTHIAZIDE 12.5 MG CAPSULE (FP) PO SCH (09:14)
[2020-01-13] MEDS: FLUoxetine HCL 20 MG CAPSULE PO SCH (09:15)
[2020-01-13] MEDS ORDERED: ATORVASTATIN CA 40 MG TABLET (FP) ONE (18:45)
[2020-01-13] MEDS: THIAMINE HCL 100 MG TABLET (FP) PO SCH (22:03)
[2020-01-13] MEDS: traZODone HCL 100 MG TABLET (FP) PO SCH (22:03)
[2020-01-13] MEDS: ATORVASTATIN CA 80 MG TABLET (FP) PO SCH (22:03)
[2020-01-14] MEDS: FLUoxetine HCL 20 MG CAPSULE PO SCH (10:10)
[2020-01-14] MEDS: PRENATAL VITAMINS W/ FOLIC ACID TABLET (FP) PO SCH (10:10)
[2020-01-14] MEDS: HYDROCHLOROTHIAZIDE 12.5 MG CAPSULE (FP) PO SCH (10:10)
[2020-01-14] MEDS ORDERED: ATORVASTATIN CA 40 MG TABLET (FP) ONE (19:26)
[2020-01-14] MEDS: traZODone HCL 100 MG TABLET (FP) PO SCH (21:20)
[2020-01-14] MEDS: ATORVASTATIN CA 80 MG TABLET (FP) PO SCH (21:20)
[2020-01-14] MEDS: hydrOXYzine PAMOATE 50 MG CAPSULE (FP) PO PRN (21:20)
[2020-01-14] MEDS: THIAMINE HCL 100 MG TABLET (FP) PO SCH (21:21)
[2020-01-14] MEDS: MELATONIN 5 MG TABLETS PO PRN (21:21)
[2020-01-15] MEDS ORDERED: PT OWN MED DRAWER 7, Y5N ONE (09:04)
[2020-01-15] MEDS: HYDROCHLOROTHIAZIDE 12.5 MG CAPSULE (FP) PO SCH (10:23)
[2020-01-15] MEDS: PRENATAL VITAMINS W/ FOLIC ACID TABLET (FP) PO SCH (10:23)
[2020-01-15] MEDS: FLUoxetine HCL 20 MG CAPSULE PO SCH (10:24)
[2020-01-15] MEDS ORDERED: ATORVASTATIN CA 40 MG TABLET (FP) ONE (19:32)
[2020-01-15] MEDS: traZODone HCL 100 MG TABLET (FP) PO SCH (21:26)
[2020-01-15] MEDS: THIAMINE HCL 100 MG TABLET (FP) PO SCH (21:26)
[2020-01-15] MEDS: hydrOXYzine PAMOATE 50 MG CAPSULE (FP) PO PRN (21:26)
[2020-01-15] MEDS: ATORVASTATIN CA 80 MG TABLET (FP) PO SCH (21:27)
[2020-01-16] MEDS: HYDROCHLOROTHIAZIDE 12.5 MG CAPSULE (FP) PO SCH (09:59)
[2020-01-16] MEDS: PRENATAL VITAMINS W/ FOLIC ACID TABLET (FP) PO SCH (09:59)
[2020-01-16] MEDS: FLUoxetine HCL 20 MG CAPSULE PO SCH (09:59)
[2020-01-16] MEDS ORDERED: ATORVASTATIN CA 40 MG TABLET (FP) ONE (18:52)
[2020-01-16] MEDS: ATORVASTATIN CA 80 MG TABLET (FP) PO SCH (21:10)
[2020-01-16] MEDS: traZODone HCL 100 MG TABLET (FP) PO SCH (21:10)
[2020-01-16] MEDS: THIAMINE HCL 100 MG TABLET (FP) PO SCH (21:10)
[2020-01-17] MEDS: PRENATAL VITAMINS W/ FOLIC ACID TABLET (FP) PO SCH (10:23)
[2020-01-17] MEDS: FLUoxetine HCL 20 MG CAPSULE PO SCH (10:23)
[2020-01-17] MEDS: HYDROCHLOROTHIAZIDE 12.5 MG CAPSULE (FP) PO SCH (10:23)
[2020-01-17] MEDS ORDERED: ATORVASTATIN CA 40 MG TABLET (FP) ONE (19:45)
[2020-01-17] MEDS: traZODone HCL 100 MG TABLET (FP) PO SCH (21:43)
[2020-01-17] MEDS: THIAMINE HCL 100 MG TABLET (FP) PO SCH (21:44)
[2020-01-17] MEDS: ATORVASTATIN CA 80 MG TABLET (FP) PO SCH (21:44)
[2020-01-18] MEDS: HYDROCHLOROTHIAZIDE 12.5 MG CAPSULE (FP) PO SCH (10:19)
[2020-01-18] MEDS: PRENATAL VITAMINS W/ FOLIC ACID TABLET (FP) PO SCH (10:19)
[2020-01-18] MEDS: FLUoxetine HCL 20 MG CAPSULE PO SCH (10:19)
[2020-01-18] MEDS ORDERED: ATORVASTATIN CA 40 MG TABLET (FP) ONE (19:15)
[2020-01-18] MEDS: ATORVASTATIN CA 80 MG TABLET (FP) PO SCH (21:14)
[2020-01-18] MEDS: THIAMINE HCL 100 MG TABLET (FP) PO SCH (21:14)
[2020-01-18] MEDS: traZODone HCL 100 MG TABLET (FP) PO SCH (21:14)
[2020-01-19] MEDS: HYDROCHLOROTHIAZIDE 12.5 MG CAPSULE (FP) PO SCH (09:54)
[2020-01-19] MEDS: FLUoxetine HCL 20 MG CAPSULE PO SCH (09:54)
[2020-01-19] MEDS: PRENATAL VITAMINS W/ FOLIC ACID TABLET (FP) PO SCH (09:54)
[2020-01-19] MEDS ORDERED: COLLOIDAL OATMEAL 1 BAR EACH TP PRN (15:36)
[2020-01-19] MEDS ORDERED: ATORVASTATIN CA 40 MG TABLET (FP) ONE (19:08)
[2020-01-19] MEDS: ATORVASTATIN CA 80 MG TABLET (FP) PO SCH (21:15)
[2020-01-19] MEDS: traZODone HCL 100 MG TABLET (FP) PO SCH (21:15)
[2020-01-19] MEDS: THIAMINE HCL 100 MG TABLET (FP) PO SCH (21:15)
[2020-01-20] MEDS: HYDROCHLOROTHIAZIDE 12.5 MG CAPSULE (FP) PO SCH (10:04)
[2020-01-20] MEDS: FLUoxetine HCL 20 MG CAPSULE PO SCH (10:04)
[2020-01-20] MEDS: PRENATAL VITAMINS W/ FOLIC ACID TABLET (FP) PO SCH (10:04)
[2020-01-20] MEDS ORDERED: ATORVASTATIN CA 40 MG TABLET (FP) ONE (20:50)
[2020-01-20] MEDS: THIAMINE HCL 100 MG TABLET (FP) PO SCH (21:11)
[2020-01-20] MEDS: hydrOXYzine PAMOATE 50 MG CAPSULE (FP) PO PRN (21:11)
[2020-01-20] MEDS: MELATONIN 5 MG TABLETS PO PRN (21:11)
[2020-01-20] MEDS: traZODone HCL 100 MG TABLET (FP) PO SCH (21:11)
[2020-01-20] MEDS: ATORVASTATIN CA 80 MG TABLET (FP) PO SCH (21:11)
[2020-01-21] MEDS: HYDROCHLOROTHIAZIDE 12.5 MG CAPSULE (FP) PO SCH (10:25)
[2020-01-21] MEDS: PRENATAL VITAMINS W/ FOLIC ACID TABLET (FP) PO SCH (10:25)
[2020-01-21] MEDS: FLUoxetine HCL 20 MG CAPSULE PO SCH (10:26)
[2020-01-21] MEDS ORDERED: ATORVASTATIN CA 40 MG TABLET (FP) ONE (19:56)
[2020-01-21] MEDS: traZODone HCL 100 MG TABLET (FP) PO SCH (22:00)
[2020-01-21] MEDS: ATORVASTATIN CA 80 MG TABLET (FP) PO SCH (22:01)
[2020-01-21] MEDS: MELATONIN 5 MG TABLETS PO PRN (22:01)
[2020-01-21] MEDS: THIAMINE HCL 100 MG TABLET (FP) PO SCH (22:01)
[2020-01-22] MEDS: FLUoxetine HCL 20 MG CAPSULE PO SCH (10:08)
[2020-01-22] MEDS: PRENATAL VITAMINS W/ FOLIC ACID TABLET (FP) PO SCH (10:08)
[2020-01-22] MEDS: HYDROCHLOROTHIAZIDE 12.5 MG CAPSULE (FP) PO SCH (10:08)
[2020-01-22] MEDS ORDERED: ATORVASTATIN CA 40 MG TABLET (FP) ONE (18:42)
[2020-01-22] MEDS: MELATONIN 5 MG TABLETS PO PRN (21:36)
[2020-01-22] MEDS: ATORVASTATIN CA 80 MG TABLET (FP) PO SCH (21:36)
[2020-01-22] MEDS: traZODone HCL 100 MG TABLET (FP) PO SCH (21:36)
[2020-01-22] MEDS: THIAMINE HCL 100 MG TABLET (FP) PO SCH (21:36)
[2020-01-23] MEDS: PRENATAL VITAMINS W/ FOLIC ACID TABLET (FP) PO SCH (10:02)
[2020-01-23] MEDS: FLUoxetine HCL 20 MG CAPSULE PO SCH (10:02)
[2020-01-23] MEDS: HYDROCHLOROTHIAZIDE 12.5 MG CAPSULE (FP) PO SCH (10:02)
[2020-01-23] MEDS ORDERED: ATORVASTATIN CA 40 MG TABLET (FP) ONE (20:12)
[2020-01-23] MEDS: THIAMINE HCL 100 MG TABLET (FP) PO SCH (22:08)
[2020-01-23] MEDS: traZODone HCL 100 MG TABLET (FP) PO SCH (22:08)
[2020-01-23] MEDS: MELATONIN 5 MG TABLETS PO PRN (22:08)
[2020-01-23] MEDS: ATORVASTATIN CA 80 MG TABLET (FP) PO SCH (22:08)
[2020-01-24] MEDS: HYDROCHLOROTHIAZIDE 12.5 MG CAPSULE (FP) PO SCH (09:40)
[2020-01-24] MEDS: FLUoxetine HCL 20 MG CAPSULE PO SCH (10:09)
[2020-01-24] MEDS: PRENATAL VITAMINS W/ FOLIC ACID TABLET (FP) PO SCH (10:09)
[2020-01-24] MEDS ORDERED: ATORVASTATIN CA 40 MG TABLET (FP) ONE (18:42)
[2020-01-24] MEDS: ATORVASTATIN CA 80 MG TABLET (FP) PO SCH (21:25)
[2020-01-24] MEDS: traZODone HCL 100 MG TABLET (FP) PO SCH (21:25)
[2020-01-24] MEDS: THIAMINE HCL 100 MG TABLET (FP) PO SCH (21:25)
[2020-01-25] MEDS: PRENATAL VITAMINS W/ FOLIC ACID TABLET (FP) PO SCH (10:04)
[2020-01-25] MEDS: HYDROCHLOROTHIAZIDE 12.5 MG CAPSULE (FP) PO SCH (10:04)
[2020-01-25] MEDS: FLUoxetine HCL 20 MG CAPSULE PO SCH (10:04)
--- NOTE | 2020-01-25 10:08 | DS ---
[facility] Rehab Discharge Summary - [facility] Rehab Discharge Summary Admission Date: 01/04/20 Discharge Date: 01/25/20 - History Present History: Alcohol dependence Pertinent Past History: 59 year old female with history alcohol dependence who was abstinent for 10 years but relapsed 4 months ago after having difficulties with marriage and moving out. She went into a depression after that and was started on new medications for it. She denies SI, SA. She does not want to hurt the people she loves the most. Alcohol: 1 gallon moscado daily for past 4 months with multiple blackouts. Needs an eye software reverse engineer every day or she has temblors. Breathalyzer 0.027 today. PMH: Gastritis, HTN, HLD, Borderline DM Psych: MDD, Insomnia, Mood Disorder, NOS She is domiciled in her own apartment. She has support systems in sponsor, best friend, adventist, meetings. But all these she stopped going to when she fell into the depression which led her to binge drink. She plans to re-engage with the support systems upon discharge. - Discharge Physical Exam Vital Signs: Vital Signs Temperature 97.8 F 01/25/20 09:16 Pulse Rate 89 01/25/20 09:16 Respiratory Rate 18 01/25/20 09:16 Blood Pressure 133/101 H 01/25/20 09:16 O2 Sat by Pulse Oximetry (%) Pertinent Admission Physical Exam Findings: General: no apparent distress HEENTM: normocephalic, PERRLA Neck: supple Lungs: clear Heart: s1 s2 ABD: +BS MSK: full weight bearing, steady gait - Treatment Discharge Condition: Outpatient referral accepted (Patient will continue with AA meetings. Medically stable for discharge.) Hospital Course: patient attended groups, had 1:1 sessions with her counselor, was seen by the psychiatric service. She was adherent to her medication regimen and treatment plan. - Medication Discharge Medications: Ambulatory Orders Atorvastatin Ca [Lipitor] 80 mg PO HS 12/30/19 Fluoxetine HCl [Prozac] 20 mg PO DAILY 12/30/19 Hydrochlorothiazide [Hctz -] 25 mg PO DAILY tablet 01/04/20 Fluoxetine HCl [Prozac -] 20 mg PO DAILY #30 capsule 01/25/20 traZODone HCL [Desyrel -] 100 mg PO HS #30 tablet 01/25/20 - Medication-Assisted Treatment (MAT) Medication-Assisted Treatment (MAT): No - Discharge Instructions Diet, activity, other medical instructions: Diet:as tolerated Activity: as tolerated Other medical instructions: Please continue with AA meetings and keep psychiatric appointment at [facility]. - Follow-up Referral Minutes to complete discharge: 20 - AMA Did Patient Leave Against Medical Advice: No Additional Comments: Patient stated she did not need any medications transmitted to the pharmacy because she had sufficient supply of her home medications.
--- NOTE | 2020-01-25 10:30 | PN ---
[facility] Progress Note Note: Patient is scheduled for discharge tomorrow. Scripts for 30 days supply of medications(Prozac 20 mg/day, Trazadone 100 mg/hs) will be electronically transmitted to [facility] at [address] [place] [address]
[2020-01-25] MEDS ORDERED: ATORVASTATIN CA 40 MG TABLET (FP) ONE (18:54)
[2020-01-25] MEDS: THIAMINE HCL 100 MG TABLET (FP) PO SCH (21:20)
[2020-01-25] MEDS: traZODone HCL 100 MG TABLET (FP) PO SCH (21:20)
[2020-01-25] MEDS: ATORVASTATIN CA 80 MG TABLET (FP) PO SCH (21:21)
[2020-01-26 09:17] VITALS: BP 115/82; PULSE 98; TEMP 98.6
== END 2020-01-26 08:45 | disposition home or self-care (01) | DRG 772 ==
LOC: YASAS 10:08 → Y3E 10:09
PROVIDERS: ADMIT Allergy & Immunology; ATTEND Allergy & Immunology
PROC: HZ42ZZZ Group Counseling for Substance Abuse Treatment, Cognitive-Behavioral (ICD-10-PCS; principal; 2020-01-04)
DX: F10.20 Alcohol dependence, uncomplicated (principal); F39 Unspecified mood [affective] disorder; F32.9 Major depressive disorder, single episode, unspecified; G47.00 Insomnia, unspecified; I10 Essential (primary) hypertension; E78.5 Hyperlipidemia, unspecified; R73.03 Prediabetes; Z88.1 Allergy status to other antibiotic agents
CPT/HCPCS: 81003